=== PATIENT | male | born 1980 ===

== ENCOUNTER 2016-04-21 17:28 | Emergency (ER) | payer OTHER ==
[2016-04-21 17:40] VITALS: BP 119/76; PULSE 58; RESP 14; TEMP 98.6; O2SAT 97
[2016-04-21] MEDS ORDERED: IBUPROFEN 200 MG TAB PO ONE (17:50)
--- NOTE | 2016-04-21 18:30 | UCPHY ---
H & P Time Seen by Provider: 04/21/16 17:41 Patient Type: New HPI/ROS: This patient reports 3 day history of sore throat moderate intensity 5/10. He still tolerating good p. o. intake but has mild discomfort swallowing. He also has a cough with slight feeling of chest congestion, subjective fevers, occasional sputum production. He notes no exacerbating or alleviating factors for symptoms except for partial relief from [id number] analgesics. ROS: Constitutional: No high fevers or chills. No other complaints. HEENT: No ear pain. Mild nasal congestion. No sinus pressure. Pulmonary: No shortness of breath pleuritic pain. 5point ROS is otherwise negative Smoking Status: Never smoked Physical Exam: Physical Exam Vital signs are normal. General: No acute distress HEENT: Nose: Clear discharge oropharynx: No significant erythema or exudates. No dysphonia. Ears: Clear bilaterally-external canals and TMs. Eyes: Pupils equal and react to light. Extraocular motions are intact. Lungs: Clear to auscultation with no rales, rhonchi or wheeze. No respiratory distress. Cardiac: Regular rate and rhythm with no murmur gallop or rub. Skin: No rash or pallor. Neuro: Alert Initial differential diagnosis: Viral pharyngitis with cough versus strep pharyngitis with cough Constitutional: Initial Vital Signs Temperature (C) 37 C 04/21/16 17:36 Heart Rate 58 L 04/21/16 17:36 Respiratory Rate 14 04/21/16 17:36 Blood Pressure 119/76 04/21/16 17:36 O2 Sat (%) 97 04/21/16 17:36 O2 Delivery Mode Room Air Allergies/Adverse Reactions: No Known Allergies Allergy (Unverified 04/21/16 17:40) Home Medications: Medication Instructions Recorded Citalopram 04/21/16 MDM/Departure - MDM Diagnostics: Rapid strep is negative. Medications Given: Discontinued Medications Ibuprofen (Motrin) 600 mg PO EDNOW ONE Stop: 04/21/16 17:51 Last Admin: 04/21/16 17:58 Dose: 600 mg - Depart Disposition: Home, Routine, Self-Care Clinical Impression: Viral pharyngitis, Cough Condition: Good Instructions: Pharyngitis (ED) Additional Instructions: Diagnosis: Viral pharyngitis 2. Cough Plan: Humidifier Ibuprofen and Tylenol for discomfort as needed Your symptoms should gradually improve over the next 5-7 days. Return for any significant worsening despite the treatment plan [place]errals[place],. [Primary Care Provider] - As per Instructions - PQRS PQRS Measurement: NA
== END 2016-04-21 18:45 | disposition home or self-care (01) ==
LOC: CED 17:28
DX: J02.8 Acute pharyngitis due to other specified organisms (principal); R05 Cough
CPT/HCPCS: 87880-PO; G0463-PO